=== PATIENT | male | born 1950 | race Caucasian/White ===

== ENCOUNTER 2024-12-02 23:23 | Emergency (ER) | payer BC, SELFPAY ==
[2024-12-02 23:31] VITALS: BP 138/89
[2024-12-03 00:28] VITALS: BP 136/60
[2024-12-03 00:29] VITALS: BMI 24.4
--- NOTE | 2024-12-03 00:40 | ED.MUSCINJ ---
HPI-Injury
General
Chief Complaint: Fall
Source: patient
Exam Limitations: none
Time Seen by Provider: 12/03/24 00:32
History of Present Illness-Injury
Initial Injury comments:
74-year-old male not anticoagulated presents for evaluation of head injury. He was walking in [place] and fell forward hitting the periorbital region on the sidewalk. He notes an abrasion to the eyebrow on the right side. He denies neck pain.
He denies vision change. He denies any significant pain. He does note ecchymosis noted around the right eye.
Past History
Past History
ED Past Medical History: Cancer (Prostate cancer) and Other (Prostatectomy for prostate cancer, priapism)
ED Past Surgical History: Urological (Radical prostatectomy, hernia repair)
Social History
Tobacco: Non-smoker
Alcohol: None
Personal:
Living: with family
Employment: Employed
Family History
Family History: Other; Negative Diabetes, Hypertension or CAD
Phy Exam
Physical Exam
Physical Exam:
General: Well-appearing male no acute respiratory distress
HEENT: Normocephalic right periorbital ecchymosis noted pupils round equal reactive to light extraocular motions are intact without sign of entrapment.
Heart: RRR, no murmurs
Lungs; CTA no wheeze
MSK no c-spine tenderness, good ROM all extremities
Neurologic exam: Normal gait conversing appropriately. Good strength of the upper and lower extremities
Injury Course
Orders/Labs/Results
Orders:
Orders
12/02/24 23:35
EKG [Electrocardiogram (*1)] Urgent
Reason for Study: Syncope
12/02/24 23:36
EKG- Treatment ONCE
12/03/24 00:39
CT Head W/o Iv Contrast Urgent
Comment:
Reason For Exam: fall
CT Orbits W/o Iv Contrast Urgent
Comment:
Reason For Exam: fall, right periorbital swelling
MDM/Problems Addressed
Differential Diagnosis Includes:
Fall with periorbital swelling and ecchymosis. Consider contusion versus fracture intracranial injury. CT of head and orbits pending.
EKG done through triage shows normal sinus rhythm
*Critical Care Note
Total Time (30-74mins, 75-104mins- exclusive of procedures): Not Applicable
Update Note
Update Note:
CT head and orbits both negative for acute traumatic injury. Patient reassured. Treated for contusion. Stable for discharge.
ED Attending Note
-
Portions of this chart may have been created with voice recognition software.� Occasional wrong word or��sound alike� substitutions may have occurred due to the inherent limitations of voice recognition software.
Discharge Plan
Departure
Patient Disposition: Home (Routine Discharge)
Date of Disposition: 12/03/24
Time of Disposition: 02:16
Patient with high blood pressure during this ER visit?: No
Discharge Problem:
Contusion
Instructions: Contusion (DC)
Prescriptions:
No Action
No Current Medications
0
Referrals:
Charles Garcia MD [Family Provider] -
Activity Restrictions/Additional Instructions:
You may ice to the sore spot. Take Tylenol if needed for pain. Return here if needed
Interventions
Interventions:
*Risk Screen - Suicide Last Done: 12/02/24 23:31
*General Assessment Last Done: 12/03/24 00:22
*Neglect/Abuse Screening Last Done: 12/03/24 00:22
*ED- Fall Risk Assessment Last Done: 12/03/24 00:22
*ED COVID-19 Vaccine History Last Done: 12/03/24 00:22
ED-Musculoskeletal Assessment Last Done: 12/03/24 00:27
ED- Neurological Assessment Last Done: 12/03/24 00:27
ED-Skin Assessment Last Done: 12/03/24 00:27
Discharge Date and Time
Print Language: [place]
[2024-12-03 02:21] VITALS: BP 128/77
== END 2024-12-03 02:23 | disposition home or self-care (01) ==
LOC: EMR 23:23
PROVIDERS: EMERGENCY PHYSICIAN Student in an Organized Health Care Education/Training Program; FAMILY PHYSICIAN Family Medicine
DX: S00.11XA Contusion of right eyelid and periocular area, initial encounter (principal); S00.211A Abrasion of right eyelid and periocular area, initial encounter; W19.XXXA Unspecified fall, initial encounter
CPT/HCPCS: 99285; 70450; 70480; 93005